=== PATIENT | male | born 1985 | race American Indian/Alaskan Native ===

== ENCOUNTER 2018-09-09 15:06 | Emergency (ER) | payer SELFPAY ==
[2018-09-09 15:10] VITALS: BP 150/93
--- NOTE | 2018-09-09 15:15 | Emergency Department Report ---
Chief Complaint: Skin Rash Stated Complaint: ALLERGIC REACTION Time Seen by Provider: 09/09/18 15:10 - HPI History of Present Illness: This is a 33-year-old male nontoxic well in appearance with no signs of distress presents to the ED with complaint of nosebleed and hives. Patient stated these symptoms were yesterday. Currently denies any symptoms. Patient denies any angioedema. no rash. Patient denies any other symptoms. Denies any fever, chills, headache, nausea, vomiting, chest pain or SOB. Denies any other complaints. - Exam Vital Signs: Vital Signs 09/09/18 15:09 Temperature 97.5 F L Pulse Rate 82 Respiratory 16 Rate Blood Pressure 150/93 O2 Sat by Pulse 99 Oximetry Physical Exam: No angioedema. No rash noted. No nose bleed. No hematoma in nose. All other exam area within normal limits. MSE screening note: Focused history and physical exam performed. Due to findings the following was ordered: ED Medical Decision Making - Medical Decision Making Patient was instructed to Follow-up with a primary care doctor in 3-5 days or if symptoms worsen and continue return to emergency room as soon as possible. At time of discharge, the patient does not seem toxic or ill in appearance. No acute signs of distress noted. Patient agrees to discharge treatment plan of care. No further questions noted by the patient. ED Disposition for MSE Clinical Impression: Routine medical exam Disposition: DC-01 TO HOME OR SELFCARE Is pt being admited?: No Does the pt Need Aspirin: No Condition: Stable Instructions: Urticaria (ED) Additional Instructions: Follow-up with a primary care doctor in 3-5 days or if symptoms worsen and continue return to the emergency department as soon as possible. Referrals: PRIMARY MD KAREN [Referring] - 3-5 Days PASQUALE CANO MD [Staff Physician] - 3-5 Days [facility] [Outside] - 3-5 Days [facility] [Outside] - 3-5 Days
== END 2018-09-09 15:25 | disposition home or self-care (01) ==
LOC: ED 15:06
DX: Z00.00 Encounter for general adult medical examination without abnormal findings (principal)
CPT/HCPCS: 99281